=== PATIENT | female | born 1985 | race Caucasian/White ===

== ENCOUNTER 2019-02-24 11:32 | Emergency (ER) | payer OTHER ==
[~2019-02-24] VITALS: Ht 162.5 cm; Wt 58.1 kg
[~2019-02-24 11:32] MED LIST: AMOXICILLIN500 MG PO; ANAPROX DS550 MG PO; AUGMENTIN 875875 MG PO; CLARAVIS10 MG PO; CLEOCIN150 MG PO; CLINDAMYCIN HC300 MG PO; DARVOCET N 1001 TAB PO; DAYPRO600 M1 PO; FLAGYL500 MG PO; FLEXERIL10 MG PO; HYDROCODONE BIT1 T11 PO; IBU800 MG PO; LOVENOX60 MG/0.6 SC; MOTRIN800 MG PO; NAPROSYN500 MG PO; NORCO 325 MG-51 TAB PO; NORCO 5-325 TA1 EACH PO; PEN-V500 MG PO; PEN-VEE K500 MG PO; PENICILLIN-VK500 MG PO; PERIDEX 480 ML480 ML PO; PRENATAL1 TA1 PO; PRENATAL1 TA3 PO; TORADOL10 MG PO; ULTRAM50 MG PO; ZOFRAN ODT4 MG SL
[2019-02-24 12:59] LABS: BASO % 0.5 % (0.0-1.0); EOS # 0.1 10*3/uL (0.0-0.4); EOS % 1.7 % (1.0-4.0); HEMATOCRIT 39.7 % (37.0-47.0); HEMOGLOBIN 13.3 g/dl (12.0-16.0); LYMPH # 1.8 10*3/uL (1.3-4.4); LYMPH % 28.3 % (27.0-41.0); MEAN CELL VOLUME 93.2 fl (81.0-99.0); MEAN CORPUSCULAR HGB 31.2 pg (27.0-31.0); MEAN CORPUSCULAR HGB CONC 33.5 g/dl (33.0-37.0); MEAN PLATELET VOLUME 11.2 fl (9.6-12.3); MONO # 0.6 10*3/uL (0.1-1.0); MONO % 9.4 % (3.0-9.0); NEUT # 3.8 10*3/uL (2.3-7.9); NEUT % 59.9 % (47.0-73.0); PLATELET COUNT AUTOMATED 165 10*3/uL (130-400); RED BLOOD COUNT 4.26 10*6/uL (4.10-5.10); RED CELL DISTRI WIDTH 12.7 % (0-14.5); WHITE BLOOD COUNT 6.4 10*3/uL (4.8-10.8)
[2019-02-24 13:11] LABS: ALKALINE PHOSPHATASE 67 U/L (45-117); BUN 6 mg/dl (7-24); CHLORIDE 106 mmol/L (98-107); CREATININE 0.59 mg/dL (0.55-1.02); LIPASE 129 U/L (73-393); POTASSIUM 4.2 mmol/L (3.5-5.1); SGOT/AST 23 IU/L (3-35); SGPT/ALT 18 U/L (12-78); SODIUM 136 mmol/L (136-145); TOTAL PROTEIN 7.5 gm/dL (6.4-8.2)
[2019-02-24] MEDS ORDERED: AUGMENTIN 875875 MG PO (16:38)
[2019-02-24] MEDS ORDERED: IBUPROFEN600 MG PO (16:38)
== END 2019-02-24 16:51 | disposition home or self-care (01) ==
LOC: ED 11:32
PROVIDERS: Physician Assistant
DX: K13.79 Other lesions of oral mucosa (principal); K08.89 Other specified disorders of teeth and supporting structures; F17.200 Nicotine dependence, unspecified, uncomplicated; Z88.8 Allergy status to other drugs, medicaments and biological substances; Z79.2 Long term (current) use of antibiotics

== ENCOUNTER 2020-06-15 08:08 | Emergency (ER) | payer OTHER ==
[~2020-06-15] VITALS: Wt 63.0 kg
[~2020-06-15 08:08] MED LIST changes: +IBUPROFEN600 MG PO
[2020-06-15] MEDS ORDERED: AUGMENTIN 875875 MG PO (08:51)
== END 2020-06-15 09:55 | disposition home or self-care (01) ==
LOC: ED 08:08
DX: K04.7 Periapical abscess without sinus (principal); Z88.8 Allergy status to other drugs, medicaments and biological substances; Z79.899 Other long term (current) drug therapy

== ENCOUNTER 2023-04-18 11:36 | Emergency (ER) | payer OTHER ==
[2023-04-18] MEDS ORDERED: PREDNISONE50 MG PO (11:56)
[2023-04-18] MEDS ORDERED: AMOX-CLAV 875-1 EACH PO (11:56)
[2023-04-18] MEDS ORDERED: MELOXICAM15 MG PO (11:56)
== END 2023-04-18 11:55 | disposition home or self-care (01) ==
LOC: ED 11:36
DX: K08.89 Other specified disorders of teeth and supporting structures (principal); F17.210 Nicotine dependence, cigarettes, uncomplicated; Z88.8 Allergy status to other drugs, medicaments and biological substances; Z79.2 Long term (current) use of antibiotics; Z79.899 Other long term (current) drug therapy

== ENCOUNTER 2023-05-26 16:55 | Emergency (ER) | payer OTHER ==
[~2023-05-26 16:55] MED LIST changes: +AMOX-CLAV 875-1 EACH PO; +MELOXICAM15 MG PO; +PREDNISONE50 MG PO
[2023-05-26] MEDS ORDERED: PREDNISONE50 MG PO (17:51)
[2023-05-26] MEDS ORDERED: MELOXICAM5 MG PO (17:51)
== END 2023-05-26 18:44 | disposition home or self-care (01) ==
LOC: ED 16:55
DX: A02.2 Localized salmonella infections (principal); K08.89 Other specified disorders of teeth and supporting structures; J45.909 Unspecified asthma, uncomplicated; Z88.8 Allergy status to other drugs, medicaments and biological substances; Z90.89 Acquired absence of other organs; Z98.890 Other specified postprocedural states

== ENCOUNTER 2024-03-17 08:30 | Emergency (ER) | payer OTHER ==
[~2024-03-17] VITALS: Ht 162.5 cm
[~2024-03-17 08:30] MED LIST changes: +MELOXICAM5 MG PO
[2024-03-17] MEDS ORDERED: SODIUM CHLORIDE 0.9% 1,000 ML IV ONE (09:05)
[2024-03-17] MEDS ORDERED: Ondansetron Hydrochloride 4 MG/2 ML VIAL IV ONE (09:05)
[2024-03-17] MEDS ORDERED: fentaNYL CITRATE 100 MCG/2 ML VIAL IV ONE ×3 (09:05→11:25)
[2024-03-17 09:15] LABS: BILIRUBIN Negative (Negative); BLOOD Negative (Negative); CLARITY Clear (Clear); COLOR Yellow (Yellow); GLUCOSE Negative (Negative); KETONE Trace (Negative); LEUKO ESTERASE 1+ (Negative); NITRITE Negative (Negative); PH 5.5 (4.5-8.0); SPECIFIC GRAVITY 1.025 (1.001-1.030)
[2024-03-17 09:18] LABS: BASO % 0.6 % (0.0-1.0); EOS # 0.1 10*3/uL (0.0-0.4); EOS % 1.6 % (1.0-4.0); HEMATOCRIT 35.8 % (37.0-47.0); LYMPH # 1.8 10*3/uL (1.3-4.4); LYMPH % 27.8 % (27.0-41.0); MEAN CELL VOLUME 91.8 fl (81.0-99.0); MEAN CORPUSCULAR HGB CONC 33.8 g/dl (33.0-37.0); MEAN PLATELET VOLUME 10.3 fl (9.6-12.3); MONO # 0.5 10*3/uL (0.1-1.0); MONO % 8.5 % (3.0-9.0); NEUT # 3.9 10*3/uL (2.3-7.9); NEUT % 61.2 % (47.0-73.0); PLATELET COUNT AUTOMATED 217 10*3/uL (130-400); WHITE BLOOD COUNT 6.3 10*3/uL (4.8-10.8)
[2024-03-17 09:34] LABS: BACTERIA 1+; EPITHELIAL CELLS 21-30
[2024-03-17 09:40] LABS: ALKALINE PHOSPHATASE 47 U/L (46-116); BUN 14 mg/dl (9-23); CHLORIDE 106 mmol/L (98-107); POTASSIUM 3.6 mmol/L (3.4-5.1); SGPT/ALT 38 U/L (5-49); TOTAL PROTEIN 7.2 gm/dL (6.0-8.0)
[2024-03-17] MEDS ORDERED: IOHEXOL 300 MG/ML 100 ML VIAL ONE (10:02)
[2024-03-17] MEDS ORDERED: IOHEXOL 300 MG/ML 100 ML VIAL IV ONE (10:10)
[2024-03-17] MEDS ORDERED: HYDROCODONE-AC1 EACH PO (12:47)
== END 2024-03-17 12:50 | disposition home or self-care (01) ==
LOC: ED 08:30
PROVIDERS: Nurse Practitioner Family
DX: N83.201 Unspecified ovarian cyst, right side (principal); J45.909 Unspecified asthma, uncomplicated; Z88.5 Allergy status to narcotic agent; Z90.89 Acquired absence of other organs; Z98.890 Other specified postprocedural states